=== PATIENT | female | born 1935 | race Caucasian/White ===

== ENCOUNTER → 2019-06-03 | Outpatient (CLI) | payer OTHER | LOC: SJCVC 11:53 | DX: R94.31 Abnormal electrocardiogram [ECG] [EKG] (principal); I48.21 Permanent atrial fibrillation; I25.10 Atherosclerotic heart disease of native coronary artery without angina pectoris; E78.00 Pure hypercholesterolemia, unspecified; I10 Essential (primary) hypertension; I65.23 Occlusion and stenosis of bilateral carotid arteries; Z95.1 Presence of aortocoronary bypass graft ==

== ENCOUNTER → 2019-07-30 | Outpatient (CLI) | payer OTHER | LOC: SJCVCIMAG 09:24 | DX: I25.10 Atherosclerotic heart disease of native coronary artery without angina pectoris (principal); I48.91 Unspecified atrial fibrillation; E78.5 Hyperlipidemia, unspecified; I10 Essential (primary) hypertension; Z79.899 Other long term (current) drug therapy; Z87.891 Personal history of nicotine dependence ==

== ENCOUNTER → 2020-03-06 | Outpatient (CLI) | payer OTHER | LOC: SJCVC 12:58 | PROVIDERS: ATTEND Internal Medicine Cardiovascular Disease | DX: R94.31 Abnormal electrocardiogram [ECG] [EKG] (principal); I25.10 Atherosclerotic heart disease of native coronary artery without angina pectoris; I48.21 Permanent atrial fibrillation; I10 Essential (primary) hypertension; E78.00 Pure hypercholesterolemia, unspecified; I65.23 Occlusion and stenosis of bilateral carotid arteries; Z86.73 Personal history of transient ischemic attack (TIA), and cerebral infarction without residual deficits ==

== ENCOUNTER 2020-06-19 08:08 | Emergency (ER) | payer OTHER ==
[~2020-06-19] VITALS: Ht 162.6 cm; Wt 80.3 kg
[2020-06-19] MEDS ORDERED: ATORVASTATIN CA80 MG PO (08:15)
[2020-06-19] MEDS ORDERED: ZYLOPRIM300 MG PO (08:15)
[2020-06-19] MEDS ORDERED: AVAPRO 150 MG150 M1 PO (08:16)
[2020-06-19] MEDS ORDERED: CARVEDILOL12.5 MG PO (08:16)
[2020-06-19] MEDS ORDERED: VITAMIN D31250 MC1 PO (08:16)
[2020-06-19] MEDS ORDERED: OMEPRAZOLE 20 M20 M1 PO (08:17)
[2020-06-19] MEDS ORDERED: XARELTO15 MG PO (08:17)
[2020-06-19 08:59] LABS: ABSOLUTE NEUTROPHILS 4.1 thou/uL (1.4-8.2); BASOPHILS 0.3 % (0.0-2.0); EOSINOPHILS 1.9 % (0.0-3.0); HEMATOCRIT 37.7 % (37.0-47.0); HEMOGLOBIN 12.1 gm/dL (12.0-15.0); LYMPHOCYTES 7.2 % (24.0-44.0); MCH 30.6 pg (26.0-34.0); MCHC 32.2 g/dL (28.0-37.0); MONOCYTES 9.5 % (1.0-8.0); PLATELET COUNT 171 thou/uL (150-400); POLYS 81.1 % (36.0-66.0); RBC 3.97 mil/uL (4.20-5.00); WBC 5.1 thou/uL (4.0-11.0)
[2020-06-19 09:02] LABS: ANION GAP 5 mmol/L (7-16); BUN 20 mg/dL (7-18); CALCIUM 9.9 mg/dL (8.5-10.1); CHLORIDE 100 mmol/L (98-107); CO2 30 mmol/L (21-32); CREATININE 1.2 mg/dL (0.6-1.0); GLUCOSE 127 mg/dL (74-106); POTASSIUM 4.2 mmol/L (3.5-5.1); SODIUM 135 mmol/L (136-145)
[2020-06-19 09:11] LABS: MAGNESIUM 1.8 mg/dL (1.8-2.4); TROPONIN-I <0.06 ng/mL (<0.06)
[2020-06-19 09:19] LABS: PROTIME 11.1 Seconds (9.3-11.4)
[2020-06-19 09:43] VITALS: BP 141/88
--- NOTE | 2020-06-19 11:44 | EKG ---
[address] [address] ELECTROCARDIOGRAM REPORT Name: BENITO CAVAZOSESMER Lenz Room #: [facility]#: [id number] Admission: 06/19/20 Attend Phys: Discharge: 06/19/20 Date of : 37 Report #: [id number] [facility] ED Test Date: 2020-06-19 Test Time: 08:14:13 Pat Name: PEDRO CAVAZOS Department: Room: Gender: F Automotive Specialty Technician: MARTHA : 1935 Requested By: Maria Elena Coffey Order Number: [id number] MD: Anuj Klein Measurements Intervals [place] Rate: 81 P: [place]: QRS: 4 QRSD: 87 T: 63 QT: 372 QTc: 432 Interpretive Statements Atrial fibrillation LVH with secondary repolarization abnormality No previous ECG available for comparison Electronically Signed On 06-19-2020 11:43:54 PROCESS SAFETY ENGINEERING TECHNOLOGIST by Anuj Klein [email or web address] <ELECTRONICALLY SIGNED> By: Anuj Klein MD, [facility] 06/19/20 1143 [id number] 3 Anuj Klein MD, FACC /EPI
== END 2020-06-19 09:57 | disposition home or self-care (01) ==
LOC: ER 08:08
PROVIDERS: Emergency Medicine
DX: R00.2 Palpitations (principal); Z95.1 Presence of aortocoronary bypass graft; Z79.899 Other long term (current) drug therapy; Z88.1 Allergy status to other antibiotic agents; Z88.5 Allergy status to narcotic agent; Z88.8 Allergy status to other drugs, medicaments and biological substances

== ENCOUNTER → 2020-06-20 | Outpatient (CLI) | payer OTHER ==
[~2020-06-20] MED LIST: ATORVASTATIN CA80 MG PO; AVAPRO 150 MG150 M1 PO; CARVEDILOL12.5 MG PO; OMEPRAZOLE 20 M20 M1 PO; VITAMIN D31250 MC1 PO; XARELTO15 MG PO; ZYLOPRIM300 MG PO
== END ==
LOC: SJCVCIMAG 08:20
PROVIDERS: ATTEND Internal Medicine Cardiovascular Disease
DX: I08.3 Combined rheumatic disorders of mitral, aortic and tricuspid valves (principal); R06.00 Dyspnea, unspecified; R42 Dizziness and giddiness; I48.21 Permanent atrial fibrillation; I25.10 Atherosclerotic heart disease of native coronary artery without angina pectoris; I65.23 Occlusion and stenosis of bilateral carotid arteries; I10 Essential (primary) hypertension; E78.00 Pure hypercholesterolemia, unspecified; Z86.73 Personal history of transient ischemic attack (TIA), and cerebral infarction without residual deficits; Z87.891 Personal history of nicotine dependence; Z79.899 Other long term (current) drug therapy; Z95.1 Presence of aortocoronary bypass graft; Z88.1 Allergy status to other antibiotic agents; Z88.5 Allergy status to narcotic agent; E78.5 Hyperlipidemia, unspecified

== ENCOUNTER → 2021-01-22 | Outpatient (CLI) | payer OTHER | LOC: SJCVCIMAG 08:16 | PROVIDERS: ATTEND Internal Medicine Cardiovascular Disease | DX: R94.31 Abnormal electrocardiogram [ECG] [EKG] (principal); I65.23 Occlusion and stenosis of bilateral carotid arteries; I48.21 Permanent atrial fibrillation; I25.10 Atherosclerotic heart disease of native coronary artery without angina pectoris; E78.00 Pure hypercholesterolemia, unspecified; I34.0 Nonrheumatic mitral (valve) insufficiency; I10 Essential (primary) hypertension; I35.0 Nonrheumatic aortic (valve) stenosis; Z86.73 Personal history of transient ischemic attack (TIA), and cerebral infarction without residual deficits; Z95.1 Presence of aortocoronary bypass graft; Z79.899 Other long term (current) drug therapy; Z88.1 Allergy status to other antibiotic agents; Z88.5 Allergy status to narcotic agent; Z88.8 Allergy status to other drugs, medicaments and biological substances; Z87.891 Personal history of nicotine dependence ==

== ENCOUNTER 2021-04-15 13:56 | Inpatient (IN) | payer OTHER ==
[~2021-04-15] VITALS: Ht 170.2 cm; Wt 78.9 kg
[2021-04-15] MEDS ORDERED: CRESTOR20 MG PO (14:28)
[2021-04-15] MEDS ORDERED: IRON160 M1 PO (14:29)
[2021-04-15] MEDS ORDERED: CARVEDILOL12.5 MG PO (14:30)
[2021-04-15 15:38] LABS: ABSOLUTE NEUTROPHILS 4.1 thou/uL (1.4-8.2); BASOPHILS 0.6 % (0.0-2.0); EOSINOPHILS 5.1 % (0.0-3.0); HEMATOCRIT 40.9 % (37.0-47.0); HEMOGLOBIN 13.2 gm/dL (12.0-15.0); LYMPHOCYTES 9.3 % (24.0-44.0); MCH 30.5 pg (26.0-34.0); MCHC 32.3 g/dL (28.0-37.0); MCV 94.3 fL (80.0-100.0); MONOCYTES 9.7 % (1.0-8.0); PLATELET COUNT 140 thou/uL (150-400); POLYS 75.3 % (36.0-66.0); RBC 4.34 mil/uL (4.20-5.00); RDW 14.6 % (10.5-14.5); WBC 5.4 thou/uL (4.0-11.0)
[2021-04-15 15:51] LABS: CALCIUM 10.3 mg/dL (8.5-10.1); CREATININE 1.5 mg/dL (0.6-1.0)
[2021-04-15 15:54] LABS: POTASSIUM 6.1 mmol/L (3.5-5.1)
[2021-04-15 16:01] LABS: TOTAL BILIRUBIN 0.8 mg/dL (0.2-1.0)
[2021-04-15 16:02] LABS: ALBUMIN 3.7 g/dL (3.4-5.0); APTT 31.6 Seconds (24.5-32.8); INR 1.08; PROTIME 11.7 Seconds (10.5-12.1); TOTAL PROTEIN 7.7 g/dL (6.4-8.2)
[2021-04-15 17:08] VITALS: BP 123/86
--- NOTE | 2021-04-15 17:50 | NUR ---
LAB CALLS AND STATES THAT THE SPECIMEN SENT FOR THE REPEAT K+ WAS HYMOLYZED WELL. LAB UPDATED TO SEND HARNESS REPAIRER TO DRAW NEW SPCIMEN
[2021-04-15 19:33] LABS: CALCIUM 10.3 mg/dL (8.5-10.1); CREATININE 1.3 mg/dL (0.6-1.0)
[2021-04-15 19:34] LABS: POTASSIUM 4.9 mmol/L (3.5-5.1)
[2021-04-16 04:06] LABS: GLYCOHEMOGLOBIN (HGB A1C) 6.2 % (4.8-5.6)
--- NOTE | 2021-04-16 07:14 | EKG ---
[address] [address] ELECTROCARDIOGRAM REPORT Name: PEDRO CAVAZOS Room #: 170-4 [facility] IN M.R.#: [id number] Admission: 04/15/21 Attend Phys: Cody Galaviz MD Discharge: 04/15/21 Date of : 37 Report #: [id number] [facility] ED Test Date: 2021-04-15 Test Time: 15:04:38 Pat Name: PEDRO CAVAZOS Department: Room: 170 Gender: F Minesweeping Officer: SOO : 1935 Requested By: Lamont Ann Order Number: [id number] MD: Anuj Klein Measurements Intervals [place] Rate: 76 P: [place]: QRS: 11 QRSD: 92 T: 37 QT: 382 QTc: 430 Interpretive Statements Atrial fibrillation Baseline wander in lead(s) V2,V3 Compared to ECG 06/19/2020 08:14:13 Left ventricular hypertrophy no longer present Early repolarization no longer present Electronically Signed On 04-16-2021 7:14:14 RECEPTION CENTRE MANAGER by Anuj Klein [email or web address] <ELECTRONICALLY SIGNED> By: Anuj Klein MD, [facility] 04/16/21 0714 1504 1504 Anuj Klein MD, [facility] /EPI
--- NOTE | 2021-04-16 07:18 | NUR ---
PATIENT DISCHARGED PRIOR TO OT EVALUATION BEING INITIATED.
--- NOTE | 2021-04-16 07:26 | NUR ---
ORDERS FOR P.T. EVAL AND TREAT HOWEVER Pt DISCHARGED FROM E.R. PRIOR TO BEING SEEN
--- NOTE | 2021-04-16 08:55 | EKG ---
[address] [address] ELECTROCARDIOGRAM REPORT Name: PEDRO CAVAZOS Room #: 170-4 [facility] IN M.R.#: [id number] Admission: 04/15/21 Attend Phys: Cody Galaviz MD Discharge: 04/15/21 Date of : 37 Report #: [id number] [facility] ED Test Date: 2021-04-15 Test Time: 15:12:19 Pat Name: PEDRO CAVAZOS Department: Room: 170 4 Gender: F Coupon Collection Clerk: SOO : 1935 Requested By: Lamont Ann Order Number: [id number] MD: Usman Rahman Measurements Intervals [place] Rate: 82 P: [place]: QRS: 13 QRSD: 88 T: 32 QT: 385 QTc: 450 Interpretive Statements Atrial fibrillation Compared to ECG 04/15/2021 15:04:38 No significant changes Electronically Signed On 04-16-2021 8:55:12 RESIDENTIAL CONSTRUCTION INSTRUCTOR by Usman Rahman [email or web address] <ELECTRONICALLY SIGNED> By: Usman Rahman MD, [facility] 04/16/21 0855 1512 151 Usman Rahman MD, FACC /EPI
== END 2021-04-15 20:34 | disposition left against medical advice (07) | DRG 69 ==
LOC: ER 13:56 → EROBS 18:22
PROVIDERS: Emergency Medicine; ADMIT Hospitalist; ATTEND Hospitalist
DX: G45.9 Transient cerebral ischemic attack, unspecified (principal); I48.91 Unspecified atrial fibrillation; I10 Essential (primary) hypertension; E11.9 Type 2 diabetes mellitus without complications; E78.5 Hyperlipidemia, unspecified; I25.10 Atherosclerotic heart disease of native coronary artery without angina pectoris; M10.9 Gout, unspecified; Z87.891 Personal history of nicotine dependence; Z95.1 Presence of aortocoronary bypass graft; Z88.8 Allergy status to other drugs, medicaments and biological substances; Z88.6 Allergy status to analgesic agent; Z88.1 Allergy status to other antibiotic agents; Z91.041 Radiographic dye allergy status

== ENCOUNTER → 2021-05-14 | Outpatient (CLI) | payer OTHER ==
[~2021-05-14] MED LIST changes: +CRESTOR20 MG PO; +IRON160 M1 PO
== END ==
LOC: SJCVCIMAG 07:32
PROVIDERS: ATTEND Internal Medicine Cardiovascular Disease
DX: I08.3 Combined rheumatic disorders of mitral, aortic and tricuspid valves (principal); I25.10 Atherosclerotic heart disease of native coronary artery without angina pectoris; I10 Essential (primary) hypertension; E78.00 Pure hypercholesterolemia, unspecified; I65.23 Occlusion and stenosis of bilateral carotid arteries; I48.21 Permanent atrial fibrillation; F03.90 Unspecified dementia, unspecified severity, without behavioral disturbance, psychotic disturbance, mood disturbance, and anxiety; Z95.1 Presence of aortocoronary bypass graft; Z86.73 Personal history of transient ischemic attack (TIA), and cerebral infarction without residual deficits; Z86.16 Personal history of COVID-19; Z79.899 Other long term (current) drug therapy; Z87.891 Personal history of nicotine dependence; Z82.49 Family history of ischemic heart disease and other diseases of the circulatory system; Z88.5 Allergy status to narcotic agent; Z88.8 Allergy status to other drugs, medicaments and biological substances